=== PATIENT | male | born 1955 | race Caucasian/White ===

== ENCOUNTER 2023-12-21 23:13 | Emergency (ER) | payer MEDICARE, SELFPAY ==
[2023-12-21 23:16] VITALS: BP 133/55
[2023-12-21 23:45] LABS: % Basophils 0.7 % (0-2); % Eosinophils 2.4 % (0-6); % Immature Granulocytes 0.7 % (0-0.5); % Lymphocytes 28.4 % (20.5-51.1); % Monocytes 9.2 % (1.7-9.3); % Neutrophils 58.6 % (42.2-75.2); Absolute Basophils 0.1 10^3/uL (0-0.2); Absolute Eosinophils 0.2 10^3/uL (0-0.7); Absolute Immature Granulocytes 0.1 10^3/uL (0-0.05); Absolute Lymphocytes 2.8 10^3/uL (1.2-3.4); Absolute Monocytes 0.9 10^3/uL (0.1-0.6); Absolute Neutrophils 5.8 10^3/uL (1.4-6.5); Hematocrit 43.1 % (39.0-52.0); Hemoglobin 14.8 g/dL (13.0-18.0); Mean Corp Hgb Conc. 34.3 g/dL (33.0-37.0); Mean Corpuscular Hgb 32.7 pg (27.0-31.0); Mean Corpuscular Volume 95.1 fL (80.0-94.0); Mean Platelet Volume 9.4 fL (7.4-10.4); Nucleated Red Blood Cells % 0 % (-); Platelet Count 200 10^3/uL (130-400); Red Blood Cell Count 4.53 10^6/uL (4.70-6.10); Red Cell Dist. Width 13.2 % (11.5-14.5); White Blood Cell Count 9.9 10^3/uL (4.8-10.8)
[2023-12-21 23:59] LABS: ALT (SGPT) 43 U/L (0-50); AST (SGOT) 47 U/L (17-59); Albumin 3.8 g/dl (3.5-5.0); Alkaline Phosphatase 66 U/L (38-126); Blood Urea Nitrogen 29 mg/dl (9-20); Calcium 9.5 mg/dl (8.4-10.2); Carbon Dioxide 26 mmol/L (22-30); Chloride 107 mmol/L (98-107); Glucose 152 mg/dl (70-99); Sodium 139 mmol/L (135-145); Total Bilirubin 0.4 mg/dl (0.2-1.3); Total Protein 6.3 g/dl (6.3-8.2); eGFR 50.08
[2023-12-22] VITALS: BP 112/64
[2023-12-22 00:19] LABS: Troponin I 0.065 ng/ml
--- NOTE | 2023-12-22 00:35 | ED.GENMED ---
History of Present Illness
<Gena (Michell) RajandylanJEANNE - Last Filed: 12/22/23 01:08>
General
Chief Complaint: Fainting/Passed Out
Source: patient, spouse () and family (sister and son)
Exam Limitations: none
Time Seen by Provider: 12/22/23 00:15
Nursing documentation reviewed up to this point in time: agreed with
History of Present Illness
History of Present Illness:
Pt is a 68 yo male with PMHx of hyperlipidemia and neuropathy who presents to the ED after experiencing a syncopal episode at 2200 on 12/21/23. Today he drove 2 hours to the area for a family reunion where he consumed 'a few shots' of liquor and some
beer from around 1500 onwards. He was outside in the heat and humidity and swimming in an outdoor pool. He drank only 1 glass of water all afternoon. This evening he was sitting around the fire, passing around a THC-joint with his family when he
reports feeling tired, and closing his eyes 'as the world went dark'. He awoke 'cold and clammy' with family attempting to arouse him with cold water. He denies myalgias, chills, URI sx, lightheadedness or dizziness, vision changes such as blurring
or double vision before or after the incident. No chest pain or palpitations, dyspnea, SINGH, N/V, abdominal pain.
Per family, pt was seated and talking, when mid-sentence he stopped and lost consciousness. Pt began trembling while not conscious and 'came in and out of consciousness' about 4x, each episode lasting approximately 10 seconds. They report he was
'uribe' in color, diaphoretic, and cold to touch.
He has a hx of vasovagal episodes in the past, reports 8-10 episodes over the past 20 years. Last episode was approximately 1.5 years ago. Each of these episodes presents with similar symptoms and recovery. Each has the common denominator of
THC plus alcohol use. He has been worked up by cardiology with no abnormal findings, last ECHO was over 10 years ago. He has also had evaluation with an MRI of the neck and thoracic spine showed a bulging disc.
Past History
<JEANNE Herrera (Lenka) - Last Filed: 12/22/23 01:08>
Past History
ED Past Medical History: Hypercholesterolemia
Social History
Alcohol: Occasional
Drug: Marijuana (occasional )
Personal:
Living: with family
Employment: Retired (anesthesiologist)
Phy Exam
<ST Herrera (Lenka)DC - Last Filed: 12/22/23 01:08>
General Physical Exam
General Presentation: well appearing and no apparent distress
General age: appears stated age
General Skin: warm and dry
General Habitus: obese
General Mental: alert
Cardiovascular Exam
Cardiovascular Exam: regular rate/rhythm, no edema (+1 pitting edema B/L lower extremities), no gallop and normal peripheral pulses
Pulmonary Exam
Pulmonary Exam: lungs clear, no respiratory distress, no rales, no crackles, no rhonchi, no wheezing and no cough
Gastrointestinal Exam
Gastrointestinal Exam: non tender and soft
Neurological Exam
Neurological Exam: alert, oriented x3 and speech normal
Skin Exam
Skin Exam: normal color and warm/dry
Psychiatric Exam
Psychiatric Exam: normal mood/affect
Course
<Gena Mayo) ST NikkoDC - Last Filed: 12/22/23 01:08>
Orders/Labs/Results
Orders:
Orders
12/21/23 23:15
Electrocardiogram (*1) Urgent
Reason for Study: Chest Pain
Cardiac Monitoring- Treatment ONCE
EKG- Treatment ONCE
IV Insert/Care/Rem.- Treatment PRN
O2 Therapy [RESP] Urgent
Titrate/Wean O2 to maintain O2 sat greater than (%): 90
Special Instructions: Maintain sats >/=90%
Pulse Ox/spot Check [RESP] Urgent
Quantity: 1
Special Instructions: ON ROOM AIR
12/21/23 23:31
Complete Blood Count/With Diff Urgent
Comprehensive Metabolic Panel Urgent
Troponin I Urgent
12/22/23 00:48
0.9% Sodium Chloride 1000 ml [Nss] 1,000 ml IV BOLUS
12/22/23 02:12
Troponin I Urgent
Abnormal Lab Results
12/21/23 12/22/23
23:31 02:12
RBC 4.53 L 10^6/uL
(4.70-6.10)
MCV 95.1 H fL
(80.0-94.0)
MCH 32.7 H pg
(27.0-31.0)
Abs Immat Gran (auto) 0.1 H 10^3/uL
(0-0.05)
Absolute Monos (auto) 0.9 H 10^3/uL
(0.1-0.6)
Immature Gran % 0.7 H %
(0-0.5)
BUN 29 H mg/dl
(9-20)
Creatinine 1.5 H mg/dL
(0.7-1.3)
Glucose 152 H mg/dl
(70-99)
Troponin I 0.065 H* ng/ml 0.072 H* ng/ml
12/21/23 23:31
12/21/23 23:31
Vital Signs
Initial and Last Documented VS:
Initial Vital Signs
Pulse Resp BP Pulse Ox
68 17 133/55 97
12/21/23 23:16 12/21/23 23:16 12/21/23 23:16 12/21/23 23:16
Last Documented Vital Signs
Pulse Resp BP Pulse Ox
68 19 134/66 93
12/22/23 02:30 12/22/23 02:30 12/22/23 02:05 12/22/23 02:30
<Krunal Sher, DO - Last Filed: 12/22/23 03:12>
Orders/Labs/Results
Orders:
Orders
12/21/23 23:15
Electrocardiogram (*1) Urgent
Reason for Study: Chest Pain
Cardiac Monitoring- Treatment ONCE
EKG- Treatment ONCE
IV Insert/Care/Rem.- Treatment PRN
O2 Therapy [RESP] Urgent
Titrate/Wean O2 to maintain O2 sat greater than (%): 90
Special Instructions: Maintain sats >/=90%
Pulse Ox/spot Check [RESP] Urgent
Quantity: 1
Special Instructions: ON ROOM AIR
12/21/23 23:31
Complete Blood Count/With Diff Urgent
Comprehensive Metabolic Panel Urgent
Troponin I Urgent
12/22/23 00:48
0.9% Sodium Chloride 1000 ml [Nss] 1,000 ml IV BOLUS
12/22/23 02:12
Troponin I Urgent
Abnormal Lab Results
12/21/23 12/22/23
23:31 02:12
RBC 4.53 L 10^6/uL
(4.70-6.10)
MCV 95.1 H fL
(80.0-94.0)
MCH 32.7 H pg
(27.0-31.0)
Abs Immat Gran (auto) 0.1 H 10^3/uL
(0-0.05)
Absolute Monos (auto) 0.9 H 10^3/uL
(0.1-0.6)
Immature Gran % 0.7 H %
(0-0.5)
BUN 29 H mg/dl
(9-20)
Creatinine 1.5 H mg/dL
(0.7-1.3)
Glucose 152 H mg/dl
(70-99)
Troponin I 0.065 H* ng/ml 0.072 H* ng/ml
12/21/23 23:31
12/21/23 23:31
Vital Signs
Initial and Last Documented VS:
Initial Vital Signs
Pulse Resp BP Pulse Ox
68 17 133/55 97
12/21/23 23:16 12/21/23 23:16 12/21/23 23:16 12/21/23 23:16
Last Documented Vital Signs
Pulse Resp BP Pulse Ox
68 19 134/66 93
12/22/23 02:30 12/22/23 02:30 12/22/23 02:05 12/22/23 02:30
<JEANNE Herrera (Lenka) - Last Filed: 12/22/23 01:08>
MDM/Problems Addressed
Differential Diagnosis Includes:
Pt is a 68 yo male with PMHx of hyperlipidemia and neuropathy who presents to the ED after experiencing a syncopal episode at 2200 on 12/21/23. Today he drove 2 hours to the area for a family reunion where he consumed 'a few shots' of liquor and some
beer from around 1500 onwards. He was outside in the heat and humidity and swimming in an outdoor pool. He drank only 1 glass of water all afternoon. This evening he was sitting around the fire, passing around a THC-joint with his family when he
reports feeling tired, and closing his eyes 'as the world went dark'. He awoke 'cold and clammy' with family attempting to arouse him with cold water. He denies myalgias, chills, URI sx, lightheadedness or dizziness, vision changes such as blurring
or double vision before or after the incident. No chest pain or palpitations, dyspnea, SINGH, N/V, abdominal pain.
Per family, pt was seated and talking, when mid-sentence he stopped and lost consciousness. Pt began trembling while not conscious and 'came in and out of consciousness' about 4x, each episode lasting approximately 10 seconds. They report he was
'uribe' in color, diaphoretic, and cold to touch.
Hx of vasovagal episodes, last 1.5 years ago with similar sx presentation, also associated with THC and alcohol use.
He has been worked up by cardiology with no abnormal findings, last ECHO was over 10 years ago.
DDx: dehydration s/p vasovagal syncope, PE, [place]
Initial trop elevated to 0.065, will trend trops.
EKG with small fascicular block, sinus rhythm.
Elevated SCr at 1.5, pt unsure of baseline, but this fits the picture of dehydration.
<Krunal Sher, DO - Last Filed: 12/22/23 03:12>
MDM/Problems Addressed
MDM/Problems Addressed:
Syncope
<Krunal Sher DO - Last Filed: 12/22/23 03:12>
*Pulse Oximetry
Patient hypoxic: no
*EKG
Interpreted by ED Provider?: Yes
Interpretation: abnormal
Comparison EKG: no comparison EKG present
Heart Rate: 78
Rate: normal
Rhythm: sinus
Ischemia: non-specific ST changes
*Medical Supervisor Interpretation
Rate: normal
Interpretation: normal
Heart Rate: 78
Rhythm: sinus
*Critical Care Note
Total Time (30-74mins, 75-104mins- exclusive of procedures): Not Applicable
<Krunal Sher, DO - Last Filed: 12/22/23 03:12>
Update Note
Update Note:
Update second troponin noted patient resting comfortably no chest pain or shortness of breath,
Symptoms I believe are combination of viral dehydration alcohol and cannabis
He will follow-up with his physicians in [facility]
ED Attending Note
<JEANNE Herrera (Lenka) Last Filed: 12/22/23 01:08>
-
Portions of this chart may have been created with voice recognition software.� Occasional wrong word or��sound alike� substitutions may have occurred due to the inherent limitations of voice recognition software.
<Krunal Sher DO - Last Filed: 12/22/23 03:12>
ED Attending Note
Patient seen and examined by attending physician: Yes
I performed the substantive portion of visit, reviewed & personally made and approve the management plan that is documented in note by myself or WENDY.: Yes
ED Attending Note:
Seen with student examined independently 68-year-old male syncopal event after drinking alcohol in the heat all day and smoking marijuana feeling better now, creatinine noted, suspect he is dry troponin noted believe this is non-[place] elevation will
repeat start on saline hydration
Discharge Plan
Departure
Patient Disposition: Home (Routine Discharge)
Date of Disposition: 12/22/23
Time of Disposition: 02:52
Patient with high blood pressure during this ER visit?: No
Condition: Good
Discharge Problem:
Syncope and collapse
Instructions: Syncope (Fainting) (DC)
Referrals:
UNKNOWN - PT DOES,NOT KNOW [Family Provider] -
Activity Restrictions/Additional Instructions:
Drink plenty of fluids, limit your alcohol intake
Interventions
Interventions:
*Risk Screen - Suicide Last Done: 12/21/23 23:16
*General Assessment Last Done: 12/21/23 23:16
*Neglect/Abuse Screening Last Done: 12/21/23 23:16
*ED COVID-19 Vaccine History Last Done: 12/21/23 23:16
ED- Cardiac Assessment Last Done: 12/22/23 00:35
ED- Neurological Assessment Last Done: 12/21/23 23:37
Discharge Date and Time
Print Language: ANGOLAN
[2023-12-22 01:00] VITALS: BP 115/80
[2023-12-22] MEDS: NSS 1000 IV (01:20)
[2023-12-22 02:05] VITALS: BP 134/66
[2023-12-22 02:54] LABS: Troponin I 0.072 ng/ml
== END 2023-12-22 03:21 | disposition home or self-care (01) ==
LOC: EMR 23:13
PROVIDERS: Emergency Medicine; EMERGENCY PHYSICIAN Emergency Medicine
DX: R55 Syncope and collapse (principal); E78.00 Pure hypercholesterolemia, unspecified; G62.9 Polyneuropathy, unspecified; E66.9 Obesity, unspecified
CPT/HCPCS: 99283; 96360; 80053; 84484; 85025; 93005